=== PATIENT | male | born 1980 | race African-American/Black ===

== ENCOUNTER 2018-02-23 02:44 | Observation (INO) ==
[2018-02-23] MEDS ORDERED: DIPH/TET/ACEL PERT BOOSTER VACCINE 0.5 ML VIAL IM ONE ×2 (03:28→04:52)
[2018-02-23] MEDS ORDERED: HYDROmorphone 2 MG/1 ML VIAL IV PRN (03:41)
[2018-02-23] MEDS ORDERED: ONDANSETRON 4 MG/2 ML VIAL IV PRN (03:41)
[2018-02-23] MEDS ORDERED: ONDANSETRON 4 MG/2 ML VIAL ONE (04:51)
[2018-02-23] MEDS ORDERED: ceFAZolin 1,000 MG VIAL ONE ×2 (04:52→11:27)
[2018-02-23] MEDS ORDERED: HYDROmorphone 2 MG/1 ML VIAL ONE (04:52)
[2018-02-23] MEDS: LACTATED RINGERS 1,000 ML IV SCH ×2 (05:14→11:00)
[2018-02-23 07:22] LABS: Basophils % 0.3 % (0.0-0.8); Hematocrit 40.6 VOL% (42.0-52.0); Hemoglobin 13.3 GM/DL (14.0-18.0); Immature Granulocytes % 0.8 %; Immature Granulocytes Absolute 0.09 #; Lymphocytes # 1.3 10*3/uL (1.4-4.0); Mean Corpuscular HGB Conc 32.8 GM/DL (32-36); Mean Corpuscular Hemoglobin 30 PG (27-34); Mean Corpuscular Volume 90.4 FL (87-102); Mean Platelet Volume 11.4 FL (9.6-12.0); Monocytes # 0.6 10*3/uL (0.11-0.8); Monocytes % 5.3 % (1.7-12.7); Neutrophils # 9.7 10*3/uL (1.4-7.4); Neutrophils % 82.6 % (38.7-73.9); Platelet Count 242 T/CUMM (130-400); Red Blood Count 4.49 MC/CUMM (3.8-5.5); Red Cell Distribution Width 13.5 % (9.3-17.3); White Blood Count 11.8 T/CUMM (4-12)
[2018-02-23 07:42] LABS: Albumin 3.5 G/DL (3.4-5.0); Bilirubin,Total 0.4 MG/DL (0.2-1.0); Calcium 8.5 MG/DL (8.5-10.1); Osmolality,Calculated 274.7 MOS/KG (273-304); Potassium 4.2 MMOL/L (3.5-5.1); Total Protein 7.2 G/DL (6.4-8.3)
[2018-02-23] MEDS ORDERED: DIAZEPAM 5 MG TABLET PO ONE (08:00)
[2018-02-23] MEDS ORDERED: FAMOTIDINE 20 MG TABLET PO ONE (08:00)
[2018-02-23] MEDS ORDERED: BACITRACIN OINT 0.9 GM PACK TOP ONE (10:50)
[2018-02-23] MEDS ORDERED: BUPIVACAINE 0.5% 50 ML VIAL ONE (10:50)
[2018-02-23] MEDS ORDERED: LABETALOL 20 MG/4 ML SYRINGE IV ONE (11:58)
[2018-02-23] MEDS ORDERED: PROPOFOL 200 MG/20 ML VIAL IV ONE (11:58)
[2018-02-23] MEDS ORDERED: hydrALAZINE 20 MG/1 ML VIAL ONE (11:59)
[2018-02-23 16:52] VITALS: BP 128/90
== END 2018-02-23 16:10 | disposition home or self-care (01) ==
LOC: N.EDINP 02:44 → N.ED 02:44 → N.3E 04:27
PROVIDERS: ADMIT Orthopaedic Surgery; ATTEND Orthopaedic Surgery